=== PATIENT | female | born 1945 | race Caucasian/White ===

== ENCOUNTER → 2024-01-14 10:11 | Outpatient (REF) | payer MEDICARE, OTHER, SELFPAY ==
[2024-01-14 11:28] LABS: % Basophils 0.8 % (0-2); % Eosinophils 2.2 % (0-6); % Immature Granulocytes 0.5 % (0-0.5); % Lymphocytes 17.2 % (20.5-51.1); % Monocytes 6.3 % (1.7-9.3); Absolute Basophils 0.1 10^3/uL (0-0.2); Absolute Eosinophils 0.1 10^3/uL (0-0.7); Absolute Lymphocytes 1.1 10^3/uL (1.2-3.4); Absolute Monocytes 0.4 10^3/uL (0.1-0.6); Absolute Neutrophils 4.6 10^3/uL (1.4-6.5); Hematocrit 41.5 % (37.0-47.0); Mean Corp Hgb Conc. 33.7 g/dL (33.0-37.0); Mean Corpuscular Hgb 30.7 pg (27.0-31.0); Mean Platelet Volume 10.7 fL (7.4-10.4); Nucleated Red Blood Cells % 0 %; Platelet Count 283 10^3/uL (130-400); Red Blood Cell Count 4.56 10^6/uL (4.20-5.40); Red Cell Dist. Width 12.5 % (11.5-14.5); White Blood Cell Count 6.3 10^3/uL (4.8-10.8)
[2024-01-14 12:01] LABS: ALT (SGPT) 24 U/L (0-35); AST (SGOT) 34 U/L (14-36); Albumin 4.5 g/dl (3.5-5.0); Alkaline Phosphatase 105 U/L (38-126); Blood Urea Nitrogen 14 mg/dl (7-17); Calcium 9.6 mg/dl (8.4-10.2); Carbon Dioxide 26 mmol/L (22-30); Chloride 100 mmol/L (98-107); Glucose 92 mg/dl (70-99); Potassium 4.3 mmol/L (3.5-5.1); Sodium 133 mmol/L (135-145); Total Bilirubin 0.9 mg/dl (0.2-1.3); Total Cholesterol 240 mg/dl (50-199); Total Protein 7.1 g/dl (6.3-8.2); Triglyceride 72 mg/dl (10-149); Very Low Density Lipoprotein 14 mg/dl (0-30); eGFR > 60.00
[2024-01-14 12:14] LABS: HDL Cholesterol 113 mg/dl; LDL Cholesterol, Calculated 113 mg/dl
[2024-01-14 12:32] LABS: TSH Reflex To Free T4 3.23 uIU/ml (0.47-4.68)
== END ==
LOC: REG 10:11
PROVIDERS: ATTENDING PHYSICIAN Family Medicine
DX: R07.89 Other chest pain (principal); I10 Essential (primary) hypertension; E78.00 Pure hypercholesterolemia, unspecified
CPT/HCPCS: 36415; 80053; 80061; 84443; 85025

== ENCOUNTER → 2024-10-19 16:59 | Outpatient (REF) | payer MEDICARE, OTHER, SELFPAY | LOC: RAD 16:59 | PROVIDERS: ATTENDING PHYSICIAN Nurse Practitioner Adult Health | DX: R05.1 Acute cough (principal) | CPT/HCPCS: 71046 ==

== ENCOUNTER → 2024-10-25 11:58 | Outpatient (REF) | payer MEDICARE, OTHER, SELFPAY ==
[2024-10-25 12:50] LABS: % Basophils 0.7 % (0-2); % Eosinophils 2.1 % (0-6); % Immature Granulocytes 1.1 % (0-0.5); % Monocytes 8.1 % (1.7-9.3); Absolute Basophils 0.1 10^3/uL (0-0.2); Absolute Eosinophils 0.2 10^3/uL (0-0.7); Absolute Immature Granulocytes 0.1 10^3/uL (0-0.05); Absolute Lymphocytes 1.6 10^3/uL (1.2-3.4); Absolute Monocytes 0.7 10^3/uL (0.1-0.6); Absolute Neutrophils 5.5 10^3/uL (1.4-6.5); Hematocrit 39.8 % (37.0-47.0); Hemoglobin 13.3 g/dL (12.0-16.0); Mean Corp Hgb Conc. 33.4 g/dL (33.0-37.0); Mean Corpuscular Volume 89.8 fL (81.0-99.0); Mean Platelet Volume 8.8 fL (7.4-10.4); Nucleated Red Blood Cells % 0 %; Platelet Count 502 10^3/uL (130-400); Red Blood Cell Count 4.43 10^6/uL (4.20-5.40); Red Cell Dist. Width 12.4 % (11.5-14.5); White Blood Cell Count 8.1 10^3/uL (4.8-10.8)
[2024-10-25 13:26] LABS: ALT (SGPT) 28 U/L (0-35); AST (SGOT) 26 U/L (14-36); Albumin 3.9 g/dl (3.5-5.0); Alkaline Phosphatase 100 U/L (38-126); Blood Urea Nitrogen 13 mg/dl (7-17); Calcium 9.2 mg/dl (8.4-10.2); Carbon Dioxide 27 mmol/L (22-30); Chloride 95 mmol/L (98-107); Glucose 106 mg/dl (70-99); Potassium 4.7 mmol/L (3.5-5.1); Sodium 132 mmol/L (135-145); Total Bilirubin 0.6 mg/dl (0.2-1.3); Total Protein 6.5 g/dl (6.3-8.2); eGFR > 60.00
== END ==
LOC: REG 11:58
PROVIDERS: ATTENDING PHYSICIAN Nurse Practitioner Adult Health
DX: R53.1 Weakness (principal); E87.1 Hypo-osmolality and hyponatremia
CPT/HCPCS: 36415; 80053; 85025

== ENCOUNTER → 2024-12-02 10:05 | Outpatient (REF) | payer MEDICARE, OTHER, SELFPAY | LOC: HWRAD 10:05 | PROVIDERS: ATTENDING PHYSICIAN Internal Medicine; FAMILY PHYSICIAN Family Medicine | DX: R94.2 Abnormal results of pulmonary function studies (principal) | CPT/HCPCS: 71250 ==

== ENCOUNTER → 2025-02-02 11:00 | Outpatient (REF) | payer MEDICARE, OTHER, SELFPAY ==
[2025-02-02 11:57] LABS: % Basophils 0.9 % (0-2); % Eosinophils 2.4 % (0-6); % Immature Granulocytes 0.4 % (0-0.5); % Lymphocytes 21.5 % (20.5-51.1); % Monocytes 7.7 % (1.7-9.3); % Neutrophils 67.1 % (42.2-75.2); Absolute Basophils 0.1 10^3/uL (0-0.2); Absolute Eosinophils 0.1 10^3/uL (0-0.7); Absolute Lymphocytes 1.2 10^3/uL (1.2-3.4); Absolute Monocytes 0.4 10^3/uL (0.1-0.6); Absolute Neutrophils 3.6 10^3/uL (1.4-6.5); Hematocrit 42.1 % (37.0-47.0); Hemoglobin 14.1 g/dL (12.0-16.0); Mean Corp Hgb Conc. 33.5 g/dL (33.0-37.0); Mean Corpuscular Hgb 30.4 pg (27.0-31.0); Mean Corpuscular Volume 90.7 fL (81.0-99.0); Mean Platelet Volume 11.2 fL (7.4-10.4); Nucleated Red Blood Cells % 0 %; Platelet Count 277 10^3/uL (130-400); Red Blood Cell Count 4.64 10^6/uL (4.20-5.40); Red Cell Dist. Width 12.9 % (11.5-14.5); White Blood Cell Count 5.4 10^3/uL (4.8-10.8)
[2025-02-02 12:56] LABS: TSH Reflex To Free T4 3.01 uIU/ml (0.47-4.68)
[2025-02-02 13:00] LABS: ALT (SGPT) 23 U/L (0-35); AST (SGOT) 28 U/L (14-36); Albumin 4.8 g/dl (3.5-5.0); Alkaline Phosphatase 93 U/L (38-126); Blood Urea Nitrogen 16 mg/dl (7-17); Calcium 9.4 mg/dl (8.4-10.2); Carbon Dioxide 25 mmol/L (22-30); Chloride 103 mmol/L (98-107); Glucose 99 mg/dl (70-99); Potassium 4.7 mmol/L (3.5-5.1); Sodium 136 mmol/L (135-145); Total Bilirubin 0.8 mg/dl (0.2-1.3); Total Cholesterol 321 mg/dl (50-199); Total Protein 7.3 g/dl (6.3-8.2); Triglyceride 91 mg/dl (10-149); Very Low Density Lipoprotein 18 mg/dl (0-30); eGFR > 60.00
[2025-02-02 13:14] LABS: HDL Cholesterol 117 mg/dl; LDL Cholesterol, Calculated 186 mg/dl
== END ==
LOC: REG 11:00
PROVIDERS: ATTENDING PHYSICIAN Nurse Practitioner Family; FAMILY PHYSICIAN Family Medicine
DX: R00.2 Palpitations (principal); I10 Essential (primary) hypertension; E78.2 Mixed hyperlipidemia
CPT/HCPCS: 36415; 80053; 80061; 84443; 85025

== ENCOUNTER → 2025-02-05 08:16 | Outpatient (REF) | payer MEDICARE, OTHER, SELFPAY ==
[2025-02-05 09:50] LABS: HDL Cholesterol 105 mg/dl; LDL Cholesterol, Calculated 168 mg/dl; Total Cholesterol 286 mg/dl (50-199); Triglyceride 65 mg/dl (10-149); Very Low Density Lipoprotein 13 mg/dl (0-30)
== END ==
LOC: REG 08:16
PROVIDERS: ATTENDING PHYSICIAN Nurse Practitioner Family; FAMILY PHYSICIAN Family Medicine
DX: E78.2 Mixed hyperlipidemia (principal)
CPT/HCPCS: 36415; 80061

== ENCOUNTER → 2025-02-12 07:14 | Outpatient (REF) | payer MEDICARE, OTHER, SELFPAY | LOC: RCS 07:14 | PROVIDERS: ATTENDING PHYSICIAN Nurse Practitioner Family | DX: R00.2 Palpitations (principal) | CPT/HCPCS: 93225; 93226; 93306 ==

== ENCOUNTER → 2025-03-15 13:03 | Outpatient (REF) | payer MEDICARE, OTHER, SELFPAY | LOC: HWRAD 13:03 | PROVIDERS: ATTENDING PHYSICIAN Internal Medicine; FAMILY PHYSICIAN Family Medicine | DX: R91.8 Other nonspecific abnormal finding of lung field (principal) | CPT/HCPCS: 71250 ==

== ENCOUNTER → 2025-08-08 10:58 | Outpatient (REF) | payer MEDICARE, OTHER, SELFPAY ==
[2025-08-08 13:18] LABS: HDL Cholesterol 98 mg/dl; LDL Cholesterol, Calculated 172 mg/dl; Very Low Density Lipoprotein 15 mg/dl (0-30)
== END ==
LOC: REG 10:58
PROVIDERS: ATTENDING PHYSICIAN Nurse Practitioner Family
DX: E78.2 Mixed hyperlipidemia (principal)
CPT/HCPCS: 36415; 80061